=== PATIENT | female | born 1995 | race Caucasian/White ===

== ENCOUNTER 2020-12-30 12:19 | Emergency (ER) | payer OTHER, SELFPAY ==
[2020-12-30 12:22] VITALS: BP 111/66; PULSE 100; RESP 18; TEMP 37.1; O2SAT 100; BMI 25.7
--- NOTE | 2020-12-30 13:05 | ED_ITS ---
HPI - Extremity Problem General Chief complaint: Extremity Problem Stated complaint: PAIN IN L LEG Time Seen by Provider: 12/30/20 12:47 Source: patient Mode of arrival: ambulatory History of Present Illness HPI Narrative: 25-year-old female with a past medical history of anxiety, bipolar, asthma, the presenting to the ED complaining of intermittent left leg pain x a few weeks, and intermittent left arm pain. Denies swelling, numbness, tingling, trauma, fever, chills, shortness of breath, chest pain. Presenting to the ED with that is complaining of similar symptoms. Denies oral contraceptive use, smoking, recent travel/long car rides, history of DVT, known clotting disorder MD Complaint: extremity pain Related Data Allergies Allergy/AdvReac Type Severity Reaction Status Date / Time Benzodiazepines Allergy Unknown Verified 12/30/20 12:28 tetanus and diphtheria Allergy Unknown Verified 12/30/20 12:28 toxoids [From [facility]] Review of Systems Review of Systems: Constitutional: No Fever, No Chills Cardiovascular: No Chest Pain, No SOB, No Edema, No Palpitations Respiratory: No Cough, No Dyspnea Musculoskeletal: + joint pain, No Myalgias, No Joint Swelling Skin: No Skin Lesions, No rash Neuro: No Weakness, No Numbness, No Paresthesias Psych: + Anxiety Yes all other systems are reviewed and are negative [facility] Past Medical History Attestation statement: The following information was validated with the patient. Medical History (Updated 12/30/20 @ 13:55 by ELIAS Garcia) Anxiety Asthma Bipolar 1 disorder Social History Social History Advance Directives: No Advance Directives Information Provided: No Physical Exam Vital Signs: Vital Signs: Last Vital Signs Temp 98.8 F 12/30/20 12:22 Pulse 100 12/30/20 12:22 Resp 18 12/30/20 12:22 BP 111/66 12/30/20 12:22 Pulse Ox 100 12/30/20 12:22 Body Mass Index 25.7 Const: General: cooperative, healthy appearing, comfortable, no acute distress and anxious Orientation/consciousness: patient oriented x3 Limitations: no limitations HENMT: Head: Yes normal to inspection Ears: hearing grossly normal bilaterally General nose exam: Normal external nose present Face and sinus: Yes normal facial exam Eyes: General: appearance normal, both eyes and all related structures EOM: EOMs intact bilaterally Neck: Neck: Yes normal visual inspection Resp: Effort & Inspection: normal respiratory effort Auscultation: clear to auscultation bilaterally, no rales, no rhonchi and no wheezes Cardio: Rate: regular rate Heart sounds: S1 normal heart sound present and S2 normal heart sound present Skin: Rashes: no rashes Wounds: no wounds Neuro: General: patient oriented x3, gait normal, tone normal and moves all extremities Gait exam (Neuro): Normal gait present Motor exam (neuro): 5/5 motor strength present throughout Extrem: Other: Left lower extremity without swelling or deformity. +mild calf tenderness. Neurovascularly intact. Left arm without deformity/erythema or infection. Nontender. NV intact. General: Yes normal to inspection Course Course Course Narrative: -d-dimer negative > DVT unlikely with patients low predictive value and negative test MDM - Extremity (Nontraumatic) MDM Narrative Medical decision making narrative: 25-year-old female with a past medical history of anxiety, bipolar, asthma, the presenting to the ED complaining of intermittent left leg pain x a few weeks, and intermittent left arm pain. On exam anxious HR 100, NAD, well appearing, low concern for DVT, patient low risk. PERC =1 secondary to HR with is elevated likely from anxiety. Low concern for PE Plan: D-dimer Lab Data Labs: Lab Results 12/30/20 12/30/20 12/30/20 Range/Units 13:10 13:10 13:10 Hold Purple Top SEE NOTE D-Dimer < 200 NG/ML Hold Yellow Top See Note Discharge Plan Discharge Clinical Impression: Myalgia Patient Disposition: Home, Self-Care Instructions: Musculoskeletal Pain (ED) Additional Instructions: Your blood test was reassuring today in the ED it is unlikely that you have a blood clot. Follow up with her primary care doctor for further evaluation of her pains. Take Tylenol and Motrin as needed. If pain persists or worsens, becomes unbearable, you fever or chills return to the ED Referrals: Physician,None [Primary Care Provider] - 3 days
[2020-12-30 13:31] LABS: D Dimer < 200 NG/ML
== END 2020-12-30 15:29 | disposition home or self-care (01) ==
PROVIDERS: Physician Assistant; Emergency Provider Emergency Medicine Emergency Medical Services
DX: M79.605 Pain in left leg (principal); M79.10 Myalgia, unspecified site
CPT/HCPCS: 36415; 85379; 99283